=== PATIENT | male | born 1970 | race Caucasian/White ===

== ENCOUNTER 2017-12-19 13:58 | Emergency (ER) | payer OTHER ==
[~2017-12-19] VITALS: Ht 170.2 cm; Wt 158.8 kg
[~2017-12-19 13:58] MED LIST: ALDACTONE25 MG PO; ASA81BEC PO; AZITHROMYCIN 2250 MG PO; CARVEDILOL3.125 MG PO; CARVEDILOL6.25 MG PO; CIPROFLOXACIN500 M1 PO; FLAGYL500 MG PO; LASIX 20 MG TAB20 MG PO; LISINOPRIL2.5 MG PO; LORTAB 5 MG/5001 TA1 PO; MEDROLDOSEPACK PO; NORCO 10-325 T1 EACH PO; PLAVIX 75 MG TA75 M1 PO; POTASSIUM20 PO; SENNA S TABLET1 EACH PO; UROXATRAL PO; VENTOLIN HFA 1818 GM INH
[2017-12-19] MEDS ORDERED: METFORMIN HCL500 MG PO ×2 (14:15)
[2017-12-19] MEDS ORDERED: LASIX 20 MG TAB20 MG PO (14:15)
[2017-12-19] MEDS ORDERED: CARVEDILOL12.5 MG PO ×2 (14:15→14:16)
[2017-12-19] MEDS ORDERED: NOVOLOG100 UNIT/1 SUBQ (14:16)
[2017-12-19] MEDS ORDERED: FLEXERIL PO (15:16)
[2017-12-19] MEDS ORDERED: VENTOLIN HFA INH8 GM INH (15:27)
[2017-12-19 15:28] VITALS: BP 157/83
== END 2017-12-19 15:42 | disposition home or self-care (01) ==
LOC: M.ERS 13:58
DX: S22.32XA Fracture of one rib, left side, initial encounter for closed fracture (principal); I10 Essential (primary) hypertension; G47.30 Sleep apnea, unspecified; Z90.49 Acquired absence of other specified parts of digestive tract; Z88.0 Allergy status to penicillin; X58.XXXA Exposure to other specified factors, initial encounter; Y93.89 Activity, other specified; Y92.89 Other specified places as the place of occurrence of the external cause; Y99.8 Other external cause status

== ENCOUNTER 2018-01-19 12:04 | Inpatient (IN) | payer OTHER ==
[~2018-01-19] VITALS: Ht 170.2 cm; Wt 153.8 kg
[~2018-01-19 12:04] MED LIST changes: +CARVEDILOL12.5 MG PO; +FLEXERIL PO; +METFORMIN HCL500 MG PO; +NOVOLOG100 UNIT/1 SUBQ; +VENTOLIN HFA INH8 GM INH
[2018-01-19 12:08] VITALS: BP 107/71
[2018-01-19] MEDS ORDERED: LANTUS100 UNIT/M SUBQ (12:12)
[2018-01-19 12:27] LABS: HEMATOCRIT 40.3 % (42.0-52.0); HEMOGLOBIN 13.8 gm/dL (14.0-18.0); MCH 32.2 pg (26.0-34.0); MCHC 34.3 g/dL (28.0-37.0); MPV 7.2 fl. (7.2-11.1); NUCLEATED RBCS 0 /100WBC; PLATELET COUNT* 223 thou/uL (150-400); RBC 4.29 mil/uL (4.50-6.00); RDW-CV 13.8 % (10.5-14.5); WBC 10.6 thou/uL (4.0-11.0)
[2018-01-19 12:36] LABS: ANION GAP 10 mmol/L (7-16); BUN 13 mg/dL (7-18); CALCIUM 8.6 mg/dL (8.5-10.1); CHLORIDE 97 mmol/L (98-107); CO2 22 mmol/L (21-32); CREATININE 1.2 mg/dL (0.6-1.3); GLUCOSE 178 mg/dL (70-99); SODIUM 129 mmol/L (136-145)
[2018-01-19 12:38] LABS: APTT 27.9 Seconds (25.0-31.3); INR 1.2; PROTIME 11.2 Seconds (9.20-11.50)
[2018-01-19 12:50] LABS: ABSOLUTE LYMPHOCYTES 0.2 thou/uL (0.8-5.3); ABSOLUTE MONOCYTES 0.2 thou/uL (0.0-1.2); ABSOLUTE NEUTROPHILS 10.2 thou/uL (1.6-8.1)
[2018-01-19 12:51] LABS: ANISOCYTOSIS 1+; PLATELET ESTIMATE ADEQUATE; POIKILOCYTOSIS 1+
[2018-01-19 12:54] LABS: ALKALINE PHOSPHATASE 80 U/L (46-116); CK-MB MASS 4.8 ng/mL (<0.5-3.6); LIPASE 140 U/L (73-393); MAGNESIUM 1.6 mg/dL (1.8-2.4); NT-PRO BRAIN NAT PEPTIDE 134 pg/mL (<300); SGOT 39 U/L (15-37); SGPT 36 U/L (30-65); TOTAL BILIRUBIN 0.8 mg/dL (<0.1-1.0); TOTAL PROTEIN 7.5 g/dL (6.4-8.2); TROPONIN-I LEVEL <0.06 ng/mL (<0.06)
[2018-01-19 14:12] LABS: URINE CLARITY CLEAR; URINE COLOR YELLOW
[2018-01-19 14:13] LABS: URINE BILIRUBIN NEGATIVE (Negative); URINE BLOOD TRACE (Negative); URINE GLUCOSE-RANDOM 3+ (Negative); URINE KETONES NEGATIVE (Negative); URINE LEUKOCYTES-REFLEX NEGATIVE (Negative); URINE NITRITE-REFLEX NEGATIVE (Negative); URINE PROTEIN NEGATIVE (Negative); URINE SPECIFIC GRAVITY <= 1.005 (1.005-1.030); URINE UROBILINOGEN 0.2 E.U./dl (0.2-1.0)
[2018-01-19 16:13] VITALS: BP 125/68
[2018-01-19 16:45] VITALS: BP 155/77
[2018-01-19 20:00] VITALS: BP 109/62
[2018-01-20] VITALS: BP 108/67
[2018-01-20 04:00] VITALS: BP 127/76
--- NOTE | 2018-01-20 06:27 | NUR ---
ASSUMED PATIENT CARE AT 1900. VILMA ALERT AND ORIENTED TIMES FOUR. TYLENOL GIVEN FOR FEVER. RESULTS OF BLOOD CULTURES IN AND REPERTED TO NEW ORDERS RECEIVED. IV IN RIGHT AC PATENT TO FLUIDS INFUSING. STATES THAT HE FORGOT HIS CPAP AT HOME. CURRENTLY ON 3L VIA NC. UP AD KENNY. STATES THAT HE STILL GIVES ALL HIS HS DOSE OF INSULIN REGARDLESS OF BLOOD SUGAR. NO COMPLAINTS OF PAIN OR DISCOMFORT. 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
[2018-01-20 08:43] VITALS: BP 111/62
--- NOTE | 2018-01-20 10:00 | NUR ---
REC'D REPORT FROM NOC RN, ASSUMED CARE OF PT AT 0730. PT A & O X4. 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 IV FLUIDS INFUSING ORDERED. ASSESSMENT COMPLETED DOCUMENTED. MEDS PER MAR. CALL LIGHT IN REACH.
[2018-01-20 12:00] VITALS: BP 115/61
--- NOTE | 2018-01-20 12:30 | EKG ---
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 Operator: ALBERTO : 1970 Requested By: Ian Don Order Number: [id number] Reading MD: Levi Chávez Measurements Intervals [place] Rate: 89 P: 28 NJ: 193 QRS: 23 QRSD: 97 T: 1 QT: 368 QTc: 448 Interpretive Statements Sinus rhythm Low voltage, precordial leads Consider inferior infarct Borderline T abnormalities, inferior leads Baseline wander in lead(s) II,III,aVF,V1,V2,V3,V4,V5,V6 Compared to ECG 12/16/2013 07:58:33 Low QRS voltage now present T-wave abnormality now present Prolonged QT interval no longer present Myocardial infarct finding still present Electronically Signed On 01-20-2018 12:30:35 CDT by Levi Chávez [email or web address] <ELECTRONICALLY SIGNED> By: Levi Chávez MD, FAC 01/20/18 1230 1209 1209 Levi Chávez MD, [facility] /EPI
--- NOTE | 2018-01-20 12:31 | EKG ---
[place] [address] ELECTROCARDIOGRAM REPORT Name: ALEE MARCUM Room: [place] [address] ADM IN M.R.#: [id number] Admission: 01/19/18 Attend Phys: Salas Shannon, Discharge: Date of : 74 Report #: [id number] THIS REPORT FOR: //name// 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 Instructor: MARIA T HORTON : 1970 Requested By: Ian Don Order Number: [id number] MD: Levi Chávez Measurements Intervals [place] Rate: 95 P: 29 HI: 194 QRS: 37 QRSD: 93 T: 0 QT: 304 QTc: 382 Interpretive Statements Sinus rhythm Probable inferior infarct, age indeterminate Compared to ECG 12/16/2013 07:58:33 Prolonged QT interval no longer present Myocardial infarct finding still present Electronically Signed On 01-20-2018 12:31:11 CDT by Levi Chávez [email or web address] <ELECTRONICALLY SIGNED> By: Levi Chávez MD, [facility] 01/20/18 1231 183 183 Levi Chávez MD, [facility] /EPI
--- NOTE | 2018-01-20 12:31 | EKG ---
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 : 1970 Requested By: Ian Don Order Number: [id number] Reading MD: Levi Chávez Measurements Intervals [place] Rate: 81 P: 24 SD: 191 QRS: 38 QRSD: 103 T: -6 QT: 394 QTc: 458 Interpretive Statements Sinus rhythm Abnormal inferior Q waves Borderline T abnormalities, inferior leads Compared to ECG 12/16/2013 07:58:33 Inferior Q waves now present Q waves now present T-wave abnormality now present Myocardial infarct finding no longer present Prolonged QT interval no longer present Electronically Signed On 01-20-2018 12:31:26 CDT by Levi Chávez [email or web address] <ELECTRONICALLY SIGNED> By: Levi Chávez MD, FACC 01/20/18 1231 0013 0013 Levi Chávez MD, FACC /EPI
[2018-01-20 14:46] LABS: INFLUENZA A ANTIGEN None Detected (None Detect); INFLUENZA B ANTIGEN None Detected (None Detect)
[2018-01-20 16:05] VITALS: BP 116/60
[2018-01-20 16:19] LABS: BE -1.3 mmol/L (-2 to +3); HCO3 20.8 mmol/L (22.0-26.0); PCO2 28.4 mmHg (35.0-45.0); PO2 64.6 mmHg (75.0-100.0); pH 7.483 (7.340-7.450)
--- NOTE | 2018-01-20 18:00 | NUR ---
PT SITTING IN CHAIR W/O COMPLAINT OF PAIN. INFORMED PT THAT VQ SCAN HAS BEEN ORDERED. EDUCATION GIVEN R/T TEST INDICATIONS AND PROCEDURE. ANSWERED QUESTIONS TO PT SATISFACTION. EARLIER THIS AFTERNOON, PT REPORTED PAIN IN UPPER R ABD, LATERAL, RATES THIS PAIN AT 3/10. PT ALSO HAD TEMP 100.7F AND REC'D PRN ACETAMINOPHEN PER AUG. PT REPORTED FEELING RELIEF OF SYMPTOM UPON REASSESSMENT. CALL LIGHT IN REACH.
[2018-01-20 20:00] VITALS: BP 114/64
[2018-01-21] VITALS: BP 109/65
[2018-01-21 04:00] VITALS: BP 118/66
--- NOTE | 2018-01-21 06:30 | NUR ---
ASSUMED PT CARE AT 1930. NURSING ASSESSMENT COMPLETED AT START OF SHIFT. PT VOICED NO CONCERNS, HOURLY ROUNDING COMPLETED, IV FLUIDS INFUSING, CALL LIGHT WITHIN REACH. PT TRACING SINUS RHYTHM THIS SHIFT.
[2018-01-21 08:15] VITALS: BP 105/53
--- NOTE | 2018-01-21 08:15 | NUR ---
ASSUMED PT. CARE AND RECEIVED REPORT AT 0730. PT A/OX4, VSS BUT BP SLIGHTLY LOW AT 105/53. ON RA @ 96%. FULL ASSESSMENT COMPLETED, REFER TO CHARTING. MONITOR ON TRACING SR. PT. UP TO CHAIR, STATES HE IS HAVING PAIN IN BACK WITH BREATHING/COUGING. HE DID SLEEP BETTER LAST NIGHT, BUT REMAINS UNCOMFORTABLE. WILL DISCUSS WITH UPON VISIT. PT. ATE BREAKFAST, TOLERATED WELL. WILL CONTINUE WITH PLAN OF CARE.
--- NOTE | 2018-01-21 11:54 | NUR ---
SW met with pt to complete initial assessment, introduce self, and SW role. Pt mother visiting pt. Pt alert, oriented. Pt lives at home with supportive mother. Pt has a CPAP and pt expressed that he needs a new mask for the CPAP. Pt has history with [employer] but says that most recently he received supplies from [employer] [place] or [place] [employer]? pt was unsure of exact name of agency and stated that the contact was a few years ago. SW can attempt to make a call to discuss company to assess needs and possibly provide needed supply/replacements. Pt did not express any other needs at this time. SW to continue to follow to assist with safe dc planning.
[2018-01-21 12:00] VITALS: BP 97/53
[2018-01-21 13:43] LABS: ALBUMIN 2.5 g/dL (3.4-5.0); CALCIUM 7.6 mg/dL (8.5-10.1); POTASSIUM 3.7 mmol/L (3.5-5.1); TOTAL BILIRUBIN 0.6 mg/dL (<0.1-1.0)
[2018-01-21 16:17] VITALS: BP 108/54
[2018-01-21 20:00] VITALS: BP 125/65
[2018-01-22] VITALS: BP 126/78
[2018-01-22 04:00] VITALS: BP 122/68
--- NOTE | 2018-01-22 06:13 | NUR ---
PT ALERT ORIENTED. UP AD KENNY IN ROOM. TYLENOL GIVEN HS FOR BACK PAIN. TELEMETRY SHOWS SR. NS AT 100MLS/HR. WILL CONTINUE TO MONITOR.
[2018-01-22 08:00] VITALS: BP 129/63
--- NOTE | 2018-01-22 11:56 | NUR ---
GARETT called and spoke with Markell Coley who has record of pt services back in 2016. GARETT initiated ordering of CPAP supplies and discussed with pt and pt that Markell Coley placed an order and will be in contact with pt, pt insurance, pt doctors to begin process of providing needed supplies to pt. Pt plans to follow up and was thankful for the initiation of renewing PAP supplies. No other needs expressed at this time.
[2018-01-22 11:59] VITALS: BP 96/60
[2018-01-22 16:01] VITALS: BP 115/48
[2018-01-22 20:00] VITALS: BP 145/65
[2018-01-23] VITALS: BP 96/39
--- NOTE | 2018-01-23 03:44 | NUR ---
PT ALERT ORIENTED. UP AD KENNY IN ROOM. TELEMETRY SHOWS SR. IVF INFUSING.
[2018-01-23 04:00] VITALS: BP 121/66
[2018-01-23 08:00] VITALS: BP 123/60
[2018-01-23 12:31] VITALS: BP 126/65
--- NOTE | 2018-01-23 12:50 | CON ---
[address] [address] CONSULTATION Name: ALEE MARCUM Room: [place] [address] ADM IN M.R.#: [id number] Admission: 01/19/18 Attend Phys: Salas Shannon, Discharge: Date of : 74 Report #: [id number] THIS REPORT FOR: //name// CC: Rafa Shannon REASON FOR EVALUATION: Gram-positive septicemia. HISTORY OF PRESENT ILLNESS: Chart reviewed, patient examined. This is a 47-year-old with history of hypertension. He is obese as well who developed some bilateral lower back pain within the last couple of weeks. He has 2 distinct issues. There is a chronic type pain on the right side. He has a pain that is exacerbated and much worse with coughing on the left side. These are upper lumbar levels, had progressed significantly over the course of the last day or two prior to admission, had developed fevers, anorexia with poor p.o. intake. He has lost weight, but this is attributable to the oral hypoglycemic medicines he is on. He notes really no risk factors. He is not sexually active. No injection drug use. In terms of exposure history[place]. Does have some animal exposure, although nothing significant. Based on history, he had recent dental work, roughly a week prior to the onset. He has not had significant muscle pains or joint pains. At the time of admission, 3 blood cultures were collected, all 3 of which have growth of gram-positive cocci from the aerobic and anaerobic bottles. Imaging was fairly unremarkable including CT of the chest. Lungs are clear. CT abdomen and pelvis again showed no focal areas of inflammation. Urinalysis was otherwise unremarkable. 1.5, it is notable that his sed rate is elevated at 110. He is not encephalopathic. ALLERGIES: LISTED TO PENICILLIN, WHICH CAUSES NUMBNESS AND TINGLING. MEDICATIONS: Include vancomycin, carvedilol, guaifenesin, aspirin, insulin glargine. Ipratropium and albuterol inhaler. PAST MEDICAL HISTORY: Hypertension. Obstructive sleep apnea, utilizes CPAP. cardiomyopathy, history of carpal tunnel, appendectomy, small bowel surgery in seventh grade. SOCIAL HISTORY: Nonsmoker, no ethanol. FAMILY HISTORY: Noncontributory. REVIEW OF SYSTEMS: As above. PHYSICAL EXAMINATION: GENERAL: Pleasant, alert, cooperative. VITAL SIGNS: Temperature 97.4, pulse 74, respirations 18, blood pressure 122/68. [place] [address] CONSULTATION Name: LAEE MARCUM Room: [address] IN [facility]#: [id number] Admission: 01/19/18 Attend Phys: Salas Shannon, Discharge: Date of : 74 Report #: [id number] SKIN: Warm, dry, no rashes. HEENT: Otherwise, unremarkable. NECK: Supple. LUNGS: Generally clear to auscultation. HEART: Regular rate. I do not appreciate a murmur. ABDOMEN: Obese, soft, nontender. There is no flank tenderness to palpation. There is no paraspinal or spinal tenderness to palpation either. GENITOURINARY: Deferred. RECTAL: Deferred. LABORATORY DATA: As noted above, lactic acid 1.8 on admission. PT 11.2, INR 1.2, D-dimer was elevated at 0.61. Chest x-ray initially with no acute abnormalities, followed by CT of the chest, showed no evidence of PE. Lungs clear. Electrolytes: Sodium 129, potassium 4.0, chloride 97, bicarbonate is 22, anion gap of 10, BUN and creatinine 13 and 1.2, glucose 178, AST borderline elevated at 39, ALT was 36. Albumin 3.0, total protein 7.5. Urinalysis unremarkable with the exception of 3+ glucose, trace blood. Blood cultures, gram-positive cocci. Influenza antigen was not detected. ASSESSMENT: Gram-positive septicemia. The patient complains of back pain, I will await those results, presumably 3/3 represents a true infection. Continue with vancomycin. We will add a dose of ceftriaxone as well, as clinically suggests more of perhaps streptococcal infection. We will check echo to exclude evidence of vegetations and endocarditis given the recent dental work. If back pain persists, may do additional imaging as well. <ELECTRONICALLY SIGNED> By: Kt Vincent MD 01/23/18 1250 1000 [id number] Vincent MD /nt
--- NOTE | 2018-01-23 12:55 | CON ---
[address] [address] CONSULTATION Name: ALEE MARCUM Room: [address] IN .R.#: [id number] Admission: 01/19/18 Attend Phys: Salas Shannon, Discharge: Date of : 74 Report #: [id number] THIS REPORT FOR: //name// CC: Rafa Martinez Salas Shannon DATE OF SERVICE: 01/20/2018 Inpatient Consultation CHIEF COMPLAINT: CHF. HISTORY OF PRESENT ILLNESS: The patient is a 47-year-old male who presented with back pain. We are asked to see him because he has CHF. He has a defibrillator followed by Dr. Jung and Allison Goyal. He has been having some mild dry cough, which is making his back pain worse. He has been having increasing lower extremity edema. He denies chest pain or pressure. He has an ICD and denies discharge. He denies syncope or presyncope. He presents with a stable cardiac telemetry rhythm of sinus rhythm. He has no fevers or chills. His CTA of the chest was ordered to rule out pulmonary embolus and no definitive pulmonary embolus was noted. PAST MEDICAL HISTORY: Nonischemic cardiomyopathy, has a remote cardiac catheterization previously followed by Dr. Dover. He has been an ICD. Manufacture is not known at this time. He has a history of morbid obesity, hypertension, and hyperlipidemia. ALLERGIES: PENICILLIN. SOCIAL HISTORY: Nonsmoker. HOME MEDICATIONS: Aspirin, Lasix 20 mg daily, lisinopril 2.5 mg daily, potassium chloride 20 mEq daily, Coreg 12.5 mg p.o. b.i.d., insulin, and metformin. REVIEW OF SYSTEMS: GASTROINTESTINAL: No nausea or vomiting. HEMATOLOGIC: No anemia or bleeding disorders. [address] [address] CONSULTATION Name: ALEE MARCUM Room: [address] IN [facility]#: [id number] Admission: 01/19/18 Attend Phys: Salas Shannon, Discharge: Date of : 74 Report #: [id number] RENAL: No history of kidney failure. SKIN: No rashes. GENERAL: No fevers or chills. CARDIOVASCULAR: Positive shortness of breath, positive cough. No chest pain. No defibrillator shock. PULMONARY: Positive cough. MUSCULOSKELETAL: Positive rib pain. PHYSICAL EXAMINATION: VITAL SIGNS: Blood pressure is 130s/70s in a sinus rhythm. O2 sat on 2 L, 96%. GENERAL: This is a morbidly obese adult male sitting up in chair, comfortable. HEENT: There is no evidence of trauma. Eyes are intact. No facial asymmetry. NECK: Supple. No jugular venous distention. Upstrokes are normal. CARDIOVASCULAR: Regular. PULMONARY: difficult to assess. There is minimal excursion. There are faint basilar rales. EXTREMITIES: There is 1 to 2+ pretibial edema bilaterally. NEUROLOGIC: No focal deficits. SKIN: Warm and dry. DATA: Electrocardiogram shows a sinus rhythm, normal ST segments. IMPRESSION: 1. Cough. This could be an DALJIT inhibitor cough. We will switch him to losartan. 2. Chronic congestive heart failure, systolic dysfunction. I would continue with diuretic therapy. He seems to be a bit volume overloaded, but mostly right-sided. 3. Status post implantable cardioverter defibrillator. I do not see any telemetry abnormalities on current telemetry data and he is followed by an outpatient by our practice. 4. Status post rib pain. I will defer to pain management is to your discretion. 5. Diabetes mellitus. Weight loss is recommended. <ELECTRONICALLY SIGNED> By: Levi Chávez MD, FACC 01/23/18 1255 1143 0125Levi Chávez MD, FACC /nt
--- NOTE | 2018-01-23 14:13 | NUR ---
ASSUMED CARE OF PATIENT THIS AM AT 0730. PATIENT IS ALERT AND ORIENTED X 4. HE DENIES PAIN. PATIENT HAS BEEN UP TO THE CHAIR THIS AM. IV LEAKING THIS AM. IV DISCONTINUED. IV RESTARTED LATE IN THE AM. IV FLUIDS AND ANTIBIOTICS CONTINUED. PATIENT IS TAKING HIS DIET WELL. PATIENT IS UP IN THE ROOM AND TO THE SHOWER TODAY. TELE SHOWS SR WITH 1 D AVB NO FALLS OR INJURY
[2018-01-23 16:20] VITALS: BP 119/67
[2018-01-23 19:30] VITALS: BP 128/69
[2018-01-24] VITALS: BP 140/68
[2018-01-24 04:00] VITALS: BP 142/81
[2018-01-24 08:00] VITALS: BP 123/71
--- NOTE | 2018-01-24 08:10 | NUR ---
RECEIVED REPORT AND ASSUMED CARE AT 1900. VSS. CARDIAC MONITORING IN PLACE. PT DENIES ANY COMPLAINTS OF PAIN. ASSESSMENT COMPLETED CHARTED. DISCUSSED PLAN OF CARE WITH PT, VERBALIZED UNDERSTANDING. MEDICATION ADMIN PER EMAR. PT UP AD KENNY IN ROOM, ON RA. HOURLY ROUDNING COMPLETED AND ALL NEEDS MET. NURSING WILL CONTINUE TO MONITOR
--- NOTE | 2018-01-24 08:48 | NUR ---
ASSUMED PT CARE AT 0730, FULL ASSESMENT DONE CHARTED. PT A/O X4, C/O PAIN IN LEFT SIDE OF RIBS/LOW BACK WHEN HE COUGHS, BUT NO PAIN JUST SITTING STILL IN CHAIR. PT DENIES THE NEED FOR PAIN MEDS AT THIS TIME. PTS VSS, SR/1ST AVB ON THE MONITOR. HAS NOT HAD A BM SINCE THE , DOES NOT WANT HIS MIRALX THIS AM, WANTS TO WAIT TO SEE IF HE GOES AFTER BREAKFAST. PT VERBALIZES NEEDS AND USES CALL LIGHT APPROPRIATLY. WILL CONTINUE WITH PLAN OF CARE.
[2018-01-24 12:29] VITALS: BP 107/56
--- NOTE | 2018-01-24 16:11 | NUR ---
RIGHT CEPHALIC VESSEL ACCESSED FOR SINGLE LUMEN 4 FR PICC. LINE PRE-TRIMMED TO 41 CM AND ADVANCED TO THE ZERO ZAC WITH NO RESISTANCE MET. UPPER ARM CIRCUMFERENCE ABOVE INSERTION SITE=20". GOOD BRISK BLOOD RETURN NOTED, LINE FLUSHES FREELY. SHERLOCK AND 3CG CONFIRMATION OF TIP TERMINATING AT THE CAVOATRIAL JUNCTION APPRECIATED. STYLET REMOVED, LINE DRESSED AND REPORT GIVEN TO JERAD JACOBS.
[2018-01-24 16:24] VITALS: BP 140/70
--- NOTE | 2018-01-24 17:19 | NUR ---
NOTED IN CHART PLAN FOR HOME IV ANTIBX AND PICC. FAXED CLINICAL TO [facility] TO CHECK BENEFITS. THEY ARE CLOSED BUT SHOULD HEAR BACK IN THE MORNING RE: BENEFITS. DISCUSSED WITH ARLENE BOYD
--- NOTE | 2018-01-24 19:18 | NUR ---
PT PROGRESSING TOWARD GOALS. PICC LINE PLACED TODAY, PT UP WALKING IN HALLS SEVERAL TIMES TODAY. C/O SOME BACK PAIN, MEDS GIVEN PER MAR. FLUIDS INFUSING AT 100/HR. PT SR/1ST DEGREE BLOCK ON THE MONITOR. REPORT GIVEN TO SAI JACOBS.
[2018-01-24 19:45] VITALS: BP 99/60
[2018-01-25] VITALS (17 sets, daily range): BP systolic 113–152; BP diastolic 58–92
--- NOTE | 2018-01-25 05:11 | NUR ---
RECEIVED REPORT AND ASSUMED CARE AT 1900. VSS. CARDIAC MONITORING IN PLACE. PT DENIES ANY COMPLAINTS OF PAIN. ASSESSMENT COMPLETED CHARTED. DISCUSSED PLAN OF CARE WITH PT, VERBALIZED UNDERSTANDING. PT NPO AFTER MIDNIGHT FOR JACQUELINE 01/25/18. PT UP AD KENNY IN ROOM, ON RA. HOURLY ROUNDING COMPLETED, ALL NEEDS MET. WILL CONITNUE TO MONITOR
--- NOTE | 2018-01-25 10:58 | NUR ---
ASSUMED PT CARE AT 0730, FULL ASSESMENT DONE CHARTED, PT A/O X4, SLIGHTLY ANXIOUS AT TIMES, PT NPO FOR JACQUELINE TODAY. PICC LINE HAS NS RUNNING AT 100/HR. PT UP AD KENNY, USES CALL LIGHT APPROPRIATLY. WILL CONTINUE WITH PLAN OF CARE.
[2018-01-25 13:20] LABS: ABSOLUTE BASOPHILS 0.1 thou/uL (0.0-0.2); ABSOLUTE EOSINOPHILS 0.2 thou/uL (0.0-0.7); ABSOLUTE MONOCYTES 0.5 thou/uL (0.0-1.2); ABSOLUTE NEUTROPHILS 5.5 thou/uL (1.6-8.1); BASOPHILS 0.8 %; EOSINOPHILS 2.2 %; HEMATOCRIT 37.8 % (42.0-52.0); HEMOGLOBIN 12.8 gm/dL (14.0-18.0); LYMPHOCYTES 13.7 %; MCHC 33.8 g/dL (28.0-37.0); MCV 94.7 fL (80.0-100.0); MONOCYTES 7.3 %; MPV 6.8 fl. (7.2-11.1); NUCLEATED RBCS 0 /100WBC; PLATELET COUNT* 295 thou/uL (150-400); RBC 3.99 mil/uL (4.50-6.00); RDW-CV 14.1 % (10.5-14.5); WBC 7.3 thou/uL (4.0-11.0)
--- NOTE | 2018-01-25 14:07 | NUR ---
SW received call from Hans at [facility] who explained pt benefits for IV abx: pt would be responsible for $21.18/day for drug and supplies, pt has met deductible, OOP to meet is $4000 and pt has met $2,861 then once the OOP is met, pt would be covered at 100% for drug and supplies. RN could be provided through [email or web address], [facility] would need final script and RN order. (Hans/[employer] [phone]). SW discussed with pt and pt mother and pt said he was not agreeable to as he has 4 dogs and would want to meet RN at local [facility] or somewhere. SW not certain pt would be able to go for OP IV abx as pt might not be on an abx that would be able to accomodate that kind of situation/schedule. SW to continue to follow to assist with safe dc planning.
[2018-01-25 14:55] LABS: ALBUMIN 2.8 g/dL (3.4-5.0); CALCIUM 8.4 mg/dL (8.5-10.1); CREATININE 0.9 mg/dL (0.6-1.3); POTASSIUM 4.2 mmol/L (3.5-5.1); TOTAL PROTEIN 6.6 g/dL (6.4-8.2)
--- NOTE | 2018-01-25 16:24 | TEE ---
[place] [address] TRANSESOPHAGEAL ECHOCARDIOGRAM Name: ALEE MARCUM Room: [address] IN [facility]#: [id number] Admission: 01/19/18 Attend Phys: Salas Richardson Discharge: Date of : 74 Date of Service: 01/25/18 1546 Report #: [id number] THIS REPORT FOR: //name// APPROVED REPORT Study performed: 01/25/2018 14:41:51 EXAM: Transesophageal Echocardiogram Patient Location: In-Patient Room #: [facility] Status: routine BSA: 2.61 HR: 76 bpm BP: 147/79 mmHg Rhythm: NSR Other Information Study Quality: Good Indications R/O ENDOCARDITIS, fever Echo Enhancing Agent Indication: Rule out Shunt Agent(s) / Amount(s) Used: Agitated Saline 10 cc Procedure After obtaining informed consent, patient underwent transesophageal echo in the [employer]. Type of Sedation : Conscious Sedation Sedation was administered by Leana Savage. Sedation start time: 1443 Case end Time: 1455 Sedation was achieved intravenously with: Versed (4) Fentanyl (50) Transesophageal probe was inserted and advanced into esophagus without difficulty by Levi Chávez MD, FACC. Echo enhancement indication: R/O Septal defect. Echo enhancement agent administered: Agitated Saline The JACQUELINE was performed without complications. Throughout the procedure, the blood pressure, pulse oximetry, cardiac rhythm, and rate were monitored. The patient tolerated the procedure without adverse effects. Recovery from conscious sedation was uneventful and [place] [address] TRANSESOPHAGEAL ECHOCARDIOGRAM Name: ALEE MARCUM Room: [address] IN [facility]#: [id number] Admission: 01/19/18 Attend Phys: Salas Richardson Discharge: Date of : 74 Date of Service: 01/25/18 1546 Report #: [id number] Left Ventricle The left ventricle is normal size. There is global hypokinesis of the left ventricle. There is normal left ventricular wall thickness. There is no ventricular septal defect visualized. Left ventricular systolic function is mildly decreased. No left ventricle thrombus noted on this study. LVEF is 40%. Right Ventricle The right ventricle is normal size. The right ventricular systolic function is normal. Device lead is present in the right ventricle.No thrombus or vegetations seen. Atria No thrombus is visualized in the left atrium or appendage. The atrial septum is aneurysmal. Interatrial septum is intact without evidence of ASD or PFO. Negative bubble contrast study. The right atrium size is normal. Aortic Valve The aortic valve is normal in structure. No aortic regurgitation is present. There is no aortic valvular vegetation. There is no aortic valvular stenosis. Mitral Valve The mitral valve is normal in structure. Trace mitral regurgitation. No evidence of mitral valve stenosis. There is no mitral valve vegetation. Tricuspid Valve The tricuspid valve is normal in structure. Moderate tricuspid regurgitation. There is no tricuspid valve vegetation. Pulmonic Valve The pulmonary valve is normal in structure. There is no pulmonic valvular regurgitation. There is no pulmonic valve vegetation. Great Vessels The aortic root is normal in size. Pericardium There is no pericardial effusion. <Conclusion> LVEF is 40%. There is global hypokinesis of the left ventricle The atrial septum is aneurysmal. [address] [address] TRANSESOPHAGEAL ECHOCARDIOGRAM Name: ALEE MARCUM Room: [place] [address] ADM IN .R.#: [id number] Admission: 01/19/18 Attend Phys: Salas Richardson Discharge: Date of : 74 Date of Service: 01/25/18 1546 Report #: [id number] Interatrial septum is intact without evidence of ASD or PFO. Negative bubble contrast study. There is no aortic valvular vegetation. There is no mitral valve vegetation. There is no tricuspid valve vegetation. Moderate tricuspid regurgitation. There is no pulmonic valve vegetation. Device lead is present in the right ventricle.No thrombus or vegetations seen. <ELECTRONICALLY SIGNED> By: Levi Chávez MD, [facility] 01/25/18 1546 1546 1546 Levi Chávez MD, [facility] /INF
--- NOTE | 2018-01-25 17:42 | NUR ---
SPOKE TO NORMA FROM [facility], HE STATES THAT IF THE PT IS DISCHARGED OVER THE WEEKED WE NEED TO CALL [phone] TO THE ONCALL PHARMACIST FIRST. THEN FAX TO [phone]. THEY WILL NEED A H&P, HOME HEALTH ORDERS, DRUG RX AND DOSING SCHEDULE FAXED TO THEM ON DISCHARGE.
[2018-01-26] VITALS (11 sets, daily range): BP systolic 129–151; BP diastolic 65–80
--- NOTE | 2018-01-26 05:33 | NUR ---
RECEIVED REPORT AND ASSUMED CARE AT 1900. PT REPORTED PAIN IN HIS BACK. PRN MEDICATION ADMIN PER ORDERS.ASSESSMENT COMPLETED CHARTED. DISCUSSED PLAN OF CARE WITH PT, VERBALIZED UNDERSTANDING. PT UP AD KENNY IN ROOM, ON RA. PT USES CPAP NOC. BED LOCKED IN LOWEST POSITION, CALL LIGHT WITHIN REACH. HOURLY ROUNDING COMPLETED. ALL NEEDS MET. PT POSSIBLE D/C 01/26 WITH FOR IV ANTIBIOTIC THERAPY. WILL CONTINUE TO MONITOR
--- NOTE | 2018-01-26 10:47 | NUR ---
ASSUMED PT CARE AT 0700 PT IS ALERT AND ORIENTED X 4 PT DENIES PAIN OR SOA ON RA, PT IS UP AD KENNY PT IS NOT A FALL RISK, PT IS CLEARED BY CARDIOLOGY FOR DISCAHRGE AWAITING HOSPITALIST, PT IS SR 1ST ON THE MONITOR, WILL CONTINUE TO MONITOR
--- NOTE | 2018-01-26 16:29 | NUR ---
GARETT met with pt and pt mother to follow up on dc planning. SW discussed final orders, script for IV Abx and RN order for IV infusion therapy and management of IV care and supplies would be sent to [facility] ph [phone] and fax [phone] if pt agreed to home visits to which pt was still uncertain that he would agree. GARETT discussed OP option but not as convenient if recommendation remains to be TID for IV abx. Pt still considering options. GARETT discussed with pt nurse. If pt dc today or tomorrow, script to be sent to [facility] or to OP infusion depending on pt choice.
[2018-01-26] MEDS ORDERED: RIFAMPIN 300 M300 M1 PO (21:58)
[2018-01-26] MEDS ORDERED: CUBICIN500 MG IVPB (22:00)
--- NOTE | 2018-01-26 23:01 | NUR ---
ASSUMED PT CARE REPORT RECEIVED FROM NURSE. PT IS TO BE DISCHARGED AFTER ONE DOSE OF IV ANTIBIOTIC DAPTOMYCIN ( NEW ORDER FROM DR ROSE). PT IS ALERT AWAKE ORIENTED X4. 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 VITALS SIGNS WITHIN NORMAL LIMIT. CURRENTLY RECEIVING IV DAPTOMYCIN ORRDERED AT 1999. MEDICATIONS WERE GIVEN SCHEDULED. BLOOD SUGAR 120. LANTUS [address] WALTER WRIGHT PAGED AFTER INFUSION OF DAPTOMYCIN REQUESTED. DISCHARGE INSTRUCTIONS AND FOLLOW UP APPOINTMENT ORDERS RECEIVED. REFER TO CHARTING. MED LIST WAS UPDATED AND PT WAS PREP TO LEAVE. PICC LINE STAYED UNTOUCHED FOLLOW UP PICC LINE CARE IS ORDERED. DISCHARGE INSTRUCTIONS GIVEN . PT STATED THAT HE HAD NO FURTHER QUESTIONS. NEW MED ( RIFFAMPIN ) SCRIPT WAS PROVIDED TO PT. WELL COPY OF WRITTEN OORDER FROM DR. ROSE . PT INSTRUCTIED ON THE NEED TO COME BACK IN THE ER IN THE EVENING THE FOLLOWING DAY FOR ADMISTRATION OF IV ANTIBIOTICC ORDERED. COPY OF WRITTEN ORDER KEPT IN PT CHART. LABOR DELIVERY RN REMOVED. PT BELONGINGS BROUGHT WITH HIM. PT LEFT THE HOSPITAL AT 2300 ACCOMPAINED BY MOTHER.
== END 2018-01-26 23:05 | disposition home or self-care (01) | DRG 871 ==
LOC: M.ERS 12:04 → M.TBA-ER 14:24 → M.2W 14:24
PROVIDERS: Family Medicine; Internal Medicine; ADMIT Family Medicine
PROC: 02HV33Z Insertion of Infusion Device into Superior Vena Cava, Percutaneous Approach (ICD-10-PCS; principal; 2018-01-24)
PROC: B24BZZ4 Ultrasonography of Heart with Aorta, Transesophageal (ICD-10-PCS; 2018-01-25)
DX: A41.01 Sepsis due to Methicillin susceptible Staphylococcus aureus (principal); J96.01 Acute respiratory failure with hypoxia; I42.9 Cardiomyopathy, unspecified; Z68.43 Body mass index [BMI] 50.0-59.9, adult; E87.1 Hypo-osmolality and hyponatremia; I50.22 Chronic systolic (congestive) heart failure; E66.2 Morbid (severe) obesity with alveolar hypoventilation; R07.9 Chest pain, unspecified; I11.0 Hypertensive heart disease with heart failure; K59.00 Constipation, unspecified; M48.061 Spinal stenosis, lumbar region without neurogenic claudication; E11.9 Type 2 diabetes mellitus without complications; G47.33 Obstructive sleep apnea (adult) (pediatric); E78.5 Hyperlipidemia, unspecified; Z90.49 Acquired absence of other specified parts of digestive tract; Z95.810 Presence of automatic (implantable) cardiac defibrillator; Z79.4 Long term (current) use of insulin; Z79.84 Long term (current) use of oral hypoglycemic drugs; Z79.82 Long term (current) use of aspirin; Z79.899 Other long term (current) drug therapy; Z88.0 Allergy status to penicillin

== ENCOUNTER → 2018-01-28 | Outpatient (CLI) | payer OTHER ==
[~2018-01-28] MED LIST changes: +CUBICIN500 MG IVPB; +LANTUS100 UNIT/M SUBQ; +RIFAMPIN 300 M300 M1 PO
--- NOTE | 2018-01-28 13:39 | NUR ---
ARRIVED AMBULATORY. MADE SELF COMFORTABLE IN RECLINER. ORDER AND HISTORY REVIEWED. PICC EVALUIATED AND NOTED TO HAVE BLOOD SATURATED DRESSING AND UPPER LATERAL CORNER WAS NON OCCLUSIVE. PICC DRESSING CHANGED. PICC NOTED TO BE 4CM EXTERNAL AT THIS POINT. STILL HAS GOOD BRISK BLOOD RETURN AND EASY FLUSH. WEEKLY LABS DRAWN FROM PICC. DENIES ADVERSE REACTION TO PRIOR INFUSION OF SAME.
[2018-01-28 14:09] LABS: HEMATOCRIT 37.9 % (42.0-52.0); HEMOGLOBIN 12.9 gm/dL (14.0-18.0); MCH 31.7 pg (26.0-34.0); MCHC 33.9 g/dL (28.0-37.0); MCV 93.5 fL (80.0-100.0); MPV 6.9 fl. (7.2-11.1); RBC 4.06 mil/uL (4.50-6.00); RDW-CV 13.8 % (10.5-14.5); WBC 5.9 thou/uL (4.0-11.0)
[2018-01-28 14:28] LABS: ALBUMIN 2.9 g/dL (3.4-5.0); CALCIUM 8.8 mg/dL (8.5-10.1); POTASSIUM 3.7 mmol/L (3.5-5.1); TOTAL PROTEIN 7.5 g/dL (6.4-8.2)
--- NOTE | 2018-01-28 14:42 | NUR ---
INFUSION COMPLETED AND TOLERATED WELL. DENIES NEEDS OR QUESTIONS AT DISCHARGE.
--- NOTE | 2018-01-28 15:44 | NUR ---
CALL RECIEVED FROM PT AT 1515. STATES HE HAS SWEAT THE DRESSING FOR PICC LINE OFF. INSTRUCTED TO RETURN TO CLINIC. PT HERE AT 1530. DRESSING WAS 1/2 OFF BIO PATCH STILL COVERING INSERTION SITE. NEW DRESSING APPLIED AND STOCKINETT.
== END ==
LOC: M.INFUS 13:00
PROVIDERS: Specialist
DX: R50.9 Fever, unspecified (principal); R07.9 Chest pain, unspecified

== ENCOUNTER → 2018-01-29 | Outpatient (CLI) | payer OTHER ==
--- NOTE | 2018-01-29 14:11 | NUR ---
ARRIVED AMUBLATORY. PICC INTACT WITH DRESSING C/D/I. STOCKINETT HAS BEEN REPLACED BY PT WITH COBAN. PICC PATENT WITH GOOD BRISK BLOOD RETURN AND EASY FLUSH. INFUSION COMPLETED AND TOLERATED WELL. DENIES NEEDS AT DISCHARGE.
== END ==
LOC: M.INFUS 04:22
DX: R50.9 Fever, unspecified (principal); R07.9 Chest pain, unspecified

== ENCOUNTER → 2018-01-30 | Outpatient (CLI) | payer OTHER ==
[2018-01-30 14:50] VITALS: BP 126/72
== END ==
LOC: M.INFUS 04:26
DX: R50.9 Fever, unspecified (principal); R07.9 Chest pain, unspecified

== ENCOUNTER → 2018-01-31 | Outpatient (CLI) | payer OTHER ==
[2018-01-31 13:40] VITALS: BP 104/47
== END ==
LOC: M.INFUS 04:46
DX: R50.9 Fever, unspecified (principal); R07.9 Chest pain, unspecified

== ENCOUNTER → 2018-02-01 | Outpatient (CLI) | payer OTHER ==
--- NOTE | 2018-02-01 13:10 | NUR ---
PATIENT ARRIVAL TO OP INFUSION FOR ANTIBIOTIC THERAPY. PHARMACY CONTACTED FOR MIXING OF MEDICATION. PATIENT MADE SELF COMFORTABLE IN RECLINER. CALL LIGHT AND REMOTE GIVEN TO PATIENT. HISTORY AND ORDERS REVIEWED. REASESSMENT AND VS COMPLETED CHARTED. RT UPPER ARM PICC LINE DRESSING INTACT. SITE WITHOUT REDNESS OR EDEMA. BRISK BLOOD RETURN OBTAINED FROM PICC AND LINE FLUSHES WELL.
[2018-02-01 13:50] VITALS: BP 118/59
--- NOTE | 2018-02-01 14:34 | NUR ---
ANTIBIOTIC INFUSION COMPLETED. PATIENT TOLERATES WELL. INSTRUCTED PATIENT ON INFUSION BEING DONE IN THE ER OVER THE NEXT 2 DAYS AND FOR THE HOLIDAY ON SUNDAY. PATIENT DEPARTS FOR HOME AT 1440.
== END ==
LOC: M.INFUS 02:22
DX: R50.9 Fever, unspecified (principal); R07.9 Chest pain, unspecified

== ENCOUNTER → 2018-02-02 | Outpatient (CLI) | payer OTHER | LOC: M.INFUS 08:00 | DX: R50.9 Fever, unspecified (principal); R07.9 Chest pain, unspecified ==

== ENCOUNTER → 2018-02-03 | Outpatient (CLI) | payer OTHER ==
[2018-02-03 13:18] VITALS: BP 127/62
== END ==
LOC: M.INFUS 08:00
DX: R50.9 Fever, unspecified (principal); R07.9 Chest pain, unspecified

== ENCOUNTER → 2018-02-04 | Outpatient (CLI) | payer OTHER ==
[2018-02-04 15:49] LABS: HEMATOCRIT 39.3 % (42.0-52.0); HEMOGLOBIN 13.3 gm/dL (14.0-18.0); MCH 31.8 pg (26.0-34.0); MCHC 33.8 g/dL (28.0-37.0); MPV 8.4 fl. (7.2-11.1); RBC 4.18 mil/uL (4.50-6.00); RDW-CV 13.8 % (10.5-14.5); WBC 7.1 thou/uL (4.0-11.0)
[2018-02-04 16:01] LABS: ALBUMIN 3.4 g/dL (3.4-5.0); CALCIUM 9.2 mg/dL (8.5-10.1); POTASSIUM 3.7 mmol/L (3.5-5.1); TOTAL BILIRUBIN 0.6 mg/dL (<0.1-1.0); TOTAL PROTEIN 8.1 g/dL (6.4-8.2)
== END ==
LOC: M.INFUS 08:00
PROVIDERS: Specialist
DX: R50.9 Fever, unspecified (principal); R07.9 Chest pain, unspecified

== ENCOUNTER → 2018-02-05 | Outpatient (CLI) | payer OTHER ==
[2018-02-05 13:15] VITALS: BP 118/63
--- NOTE | 2018-02-05 14:48 | NUR ---
PICC PATNET AND DRESSING C/D/I. INFUSION COMPLETED AND TOELRAETED WELL. DENIES QUESTION OR NEED AT DISCHARGE.
== END ==
LOC: M.INFUS 03:34
DX: R50.9 Fever, unspecified (principal); R07.9 Chest pain, unspecified

== ENCOUNTER → 2018-02-06 | Outpatient (CLI) | payer OTHER ==
[2018-02-06 12:55] VITALS: BP 141/72
--- NOTE | 2018-02-06 14:19 | NUR ---
PICC PATENT WITH GOOD BRISK BLOOD RETURN AND EASY FLUSH. INFUSION COMPLETED AND TOLERATED WELL. DENIES ADVERSE REACTION TO INFUSIONS OF SAME. DENIES NEEDS AT DISCHARGE.
== END ==
LOC: M.INFUS 04:33
DX: R50.9 Fever, unspecified (principal); R07.9 Chest pain, unspecified

== ENCOUNTER → 2018-02-07 | Outpatient (CLI) | payer OTHER ==
[2018-02-07 13:45] VITALS: BP 108/64
--- NOTE | 2018-02-07 14:33 | NUR ---
ARRIVED AMBULATORY. MADE SELF COMFORTABLE IN RECLINER. PICC INTACT AND PATENT. INFUSION COMPLETED AND TOLERATED WELL. PICC FLUSHED. DENIES NEEDS AT DISCHARGE.
== END ==
LOC: M.INFUS 04:27
DX: R50.9 Fever, unspecified (principal); R07.9 Chest pain, unspecified

== ENCOUNTER → 2018-02-08 | Outpatient (CLI) | payer OTHER ==
[2018-02-08 13:07] VITALS: BP 120/70
--- NOTE | 2018-02-08 14:06 | NUR ---
ARRIVED AMBULATORY. MADE SELF COMFORTABLE. DENIES ADVERSE REACTION TO PRIOR INFUSIONS OF SAME. PICC LINE PATNET. INFUSION COMPLETED AND TOLERATED WELL. PICC DRESSING CHANGED. DENIES NEEDS AT DISCHARGE.
== END ==
LOC: M.INFUS 02:15
DX: R50.9 Fever, unspecified (principal); R07.9 Chest pain, unspecified

== ENCOUNTER → 2018-02-09 | Outpatient (CLI) | payer OTHER | LOC: M.INFUS 08:00 | DX: R50.9 Fever, unspecified (principal); R07.9 Chest pain, unspecified ==

== ENCOUNTER → 2018-02-10 | Outpatient (CLI) | payer OTHER | LOC: M.INFUS 08:00 | DX: R50.9 Fever, unspecified (principal); R07.9 Chest pain, unspecified ==

== ENCOUNTER → 2018-02-12 | Outpatient (CLI) | payer OTHER ==
[2018-02-12 13:50] VITALS: BP 146/53
== END ==
LOC: M.INFUS 04:38
DX: R50.9 Fever, unspecified (principal); R07.9 Chest pain, unspecified

== ENCOUNTER → 2018-08-30 | Outpatient (CLI) | payer OTHER ==
[2018-08-30 17:04] LABS: CALCIUM 10.1 mg/dL (8.5-10.1); CREATININE 1.5 mg/dL (0.6-1.3); POTASSIUM 4.4 mmol/L (3.5-5.1)
== END ==
LOC: M.LAB 16:39
PROVIDERS: Nurse Practitioner
DX: I10 Essential (primary) hypertension (principal)